=== PATIENT | male | born 1950 | race Caucasian/White ===

== ENCOUNTER 2022-02-24 20:16 | Inpatient (IN) | payer MEDICAID, MEDICARE ==
[~2022-02-24] VITALS: Ht 190.5 cm; Wt 104.3 kg
[2022-02-24 20:27] VITALS: BP_SYST 123
--- NOTE | 2022-02-24 20:31 | NUR ---
PATIENT BEING TREATED FOR BILATERAL LEG INFECTIONS AND HAD MECHANICAL FALL TODAY, C/O LEFT HIP PAIN WELL. TEMPERATURE AND SOB PRESENT WELL.
--- NOTE | 2022-02-24 20:43 | NUR ---
Pt to bed 7 w/ c/o right hip pain s/p mechanical fall. No shortening or abnormal rotation of leg. Pt denies LOC. Pt denies dizziness. Pt has multiple skin prolems to posterior legs. Respirations tachypneic. Pt on 6 L NC. Pt on residential monitor and pulse oximetry.
--- NOTE | 2022-02-24 20:59 | NUR ---
# 20 gauge angiocath placed to left forearm. Use of asceptic technique. Opsite placed over site. Blood return noted. Blood for lab drawn from site. Flushed with 10 cc of normal saline. No evidence of infiltration noted. Patient tolerated well.
[2022-02-24] MEDS ORDERED: KETAMINE HCL 500 MG/10 ML VIAL IVP ONE (21:00)
[2022-02-24] MEDS ORDERED: IBUPROFEN 800 MG TABLET PO ONE (21:00)
--- NOTE | 2022-02-24 21:13 | NUR ---
COVID19 SWAB LEFT WITH FRUIT OR NUT FARMWORKER
[2022-02-24 21:30] LABS: BASOPHILS % (AUTO) 0.5 % (0.0-2.0); EOSINOPHILS % (AUTO) 0.4 % (0.0-4.0); LYMPHOCYTES # (AUTO) 1.2 K/uL (1.0-5.5); LYMPHOCYTES % (AUTO) 11.6 % (20.5-51.5); MEAN CORPUSCULAR HEMOGLOBIN 32 pg (27-31); MEAN CORPUSCULAR HGB CONC 33 % (32-36); MEAN CORPUSCULAR VOLUME 95 fL (79.0-98.0); MONOCYTES # (AUTO) 0.9 K/uL (0.0-1.0); MONOCYTES % (AUTO) 8.7 % (1.7-9.3); NEUTROPHILS # (AUTO) 7.9 K/uL (1.8-7.7); NEUTROPHILS % (AUTO) 78.8 % (40.0-70.0); PLATELET COUNT (AUTO) 264 K/uL (130-430); RED BLOOD CELL COUNT(AUTO) 4.42 MIL/uL (4.2-6.2); RED CELL DISTRIBUTION WIDTH 14.4 % (9.0-15.0)
[2022-02-24] MEDS: PIPERACILLIN/TAZO 4.5GM/DEX-IS 100 ML IV SCH (21:30)
--- NOTE | 2022-02-24 21:30 | NUR ---
Consent signed for conscious sedation by patient at this time. explained procedure to patient.
--- NOTE | 2022-02-24 21:35 | NUR ---
conscious sedation begin
[2022-02-24 21:40] LABS: PROTHROMBIN TIME 10.3 SECS (9.5-12.5)
[2022-02-24 21:49] LABS: ANION GAP 3 (5-15); CALCIUM 8.5 mg/dL (8.4-11.0); CHLORIDE 101 mmol/L (98-107); CREATININE 1.15 mg/dL (0.55-1.30); GLUCOSE 112 mg/dL (70-99); POTASSIUM 4.5 mmol/L (3.5-5.1); SODIUM SERUM 136 mmol/L (136-145); UREA NITROGEN, BLOOD 17 mg/dL (8-21)
[2022-02-24 21:54] LABS: ALANINE AMINOTRANSFERASE 19 U/L (12-78); ALBUMIN 2.8 g/dL (3.4-4.8); ASPARTATE AMINOTRANSFERASE 20 U/L (10-37); C-REACTIVE PROTEIN QUANT 6.3 mg/dL (0-0.5); TOTAL BILIRUBIN 0.5 mg/dL (0.0-1.0)
--- NOTE | 2022-02-24 22:00 | NUR ---
conscious sedation end. Pt AOx4. GSC 15. Pt on simple mask at 8L.
--- NOTE | 2022-02-24 22:05 | NUR ---
All conscious sedation vitals and notes documented in Physical paperwork for I&D for perineal abscess with moderate sedation.
[2022-02-24 22:19] LABS: CKMB RELATIVE INDEX 0.6 (0.0-2.9); CREATINE KINASE MB 2.5 ng/mL (0-3.6)
--- NOTE | 2022-02-24 22:27 | NUR ---
Pt on Simple mask at 8 L/min at this time
[2022-02-24] MEDS ORDERED: ASPIRIN 325 MG TABLET (ECOTRIN) PO ONE (23:15)
[2022-02-24] MEDS ORDERED: ACETAMINOPHEN 325 MG TABLET PO PRN (23:30)
--- NOTE | 2022-02-24 23:30 | NUR ---
Admit bed requested Patient will be admitted to care of . Admitted to unit. Diagnosis SEPSIS/ABSCESS Inpatient (Yes or No) YES Observation (Yes or No) NO Orientation concerns or request close to nursing station (Yes or No) NO Covid Status PEND On vent or bipap NO Isolation requirements NO Needs a sitter NO From Home (Yes or if No enter name of facility) HOME Requires Dialysis (Yes or No) NO Med Rec Completed (Yes of No) NO
[2022-02-24] MEDS ORDERED: VANCOMYCIN HCL 1,500 MG in NS 250 ML IV ONE (23:45)
[2022-02-24] MEDS ORDERED: PIPERACILLIN/TAZOBACTAM 4.5 GM/VIAL (ZOSYN) IV ONE (23:49)
[2022-02-24] MEDS ORDERED: iohexoL 350 mgI/mL, 100 ML INFUS..BTL IV ONE (23:57)
[2022-02-25] MEDS: PIPERACILLIN/TAZO 4.5GM/DEX-IS 100 ML IV SCH
--- NOTE | 2022-02-25 00:07 | NUR ---
Pt refused CT at this time
[2022-02-25] MEDS ORDERED: PIPERACILLIN/TAZOBACTAM 4.5 GM/VIAL (ZOSYN) IV ONE (00:36)
--- NOTE | 2022-02-25 00:58 | NUR ---
Admission Note Received patient from ER with diagnosis of sepsis and abscess. Initial Plan of Care discussed-patient verbalized understanding. Oriented to room, call light, pain management and safety.
[2022-02-25] MEDS ORDERED: VANCOMYCIN HCL 500 MG/VIAL IV ONE (01:06)
[2022-02-25] MEDS ORDERED: VANCOMYCIN HCL 1000 MG/VIAL IV ONE (01:06)
[2022-02-25] MEDS ORDERED: PIPERACILLIN/TAZOBACTAM 3.375 GM/VIAL (ZOSYN) IV ONE (01:06)
[2022-02-25 01:13] VITALS: BP_SYST 131
[2022-02-25] MEDS ORDERED: PIPERACILLIN/TAZO 3.375 GM in NS 50 ML IV SCH (06:00)
--- NOTE | 2022-02-25 06:11 | NUR ---
CLOSING NOTE PATIENT IN BED, SLEEPING AT THIS TIME. NO S/S OF ACUTE DISTRESS. BREATHING EVEN AND UNLABORED. HOB RAISED, NASAL CANULA ATTACHED PROPERLY, ON 2L OF OXYGEN. IV SITE PATENT, NO SIGNS OF INFILTRATION OR INFECTION NOTED. ALL NEEDS MET THROUGHOUT SHIFT. FALL AND SAFETY PRECAUTIONS MAINTAINED THROUGHOUT SHIFT. WILL CONTINUE TO MONITOR UNTIL PATIENT CARE IS ENDORSED TO ONCOMING DAYSHIFT NURSE.
[2022-02-25] MEDS ORDERED: ENOXAPARIN SODIUM 40 MG/0.4 ML SYRINGE SUBCUT ONE (09:00)
[2022-02-25 09:34] VITALS: BP_SYST 140
[2022-02-25] MEDS: HYDROcodone/ACETAMIN 10-325 MG TAB PO PRN ×2 (10:36→16:05)
[2022-02-25] MEDS: ENOXAPARIN SODIUM 40 MG/0.4 ML SYRINGE SUBCUT SCH (10:36)
[2022-02-25] MEDS: VANCOMYCIN HCL 1,250 MG in NS 250 ML IV SCH (12:52)
[2022-02-25] MEDS: PIPERACILLIN/TAZO 3.375 GM in NS 50 ML IV SCH ×3 (12:53→23:05)
[2022-02-25 13:45] VITALS: BP_SYST 118
--- NOTE | 2022-02-25 16:23 | NUR ---
CONSULTATION: REASON FOR CONSULT: PERINEAL ABSCESS CONSULTING PHYSICIAN: JOSE ORDERED BY: INEZ SPOKE WITH RUTH FROM EXCHANGE [phone]
--- NOTE | 2022-02-25 19:15 | NUR ---
OPENING NOTE RECEIVED REPORT FROM DAYSHIFT NURSE. PATIENT RECEIVED LYING IN BED, AWAKE, NO S/S OF ACUTE DISTRESS, DENIES PAIN AT THIS TIME. BREATHING IS EVEN AND UNLABORED. HOB RAISED. NASAL CANULA ATTACHED PROPERLY, ON 2L OF OXYGEN. IV SITE PATENT, NO SIGS OF INFILTRATION OR INFECTION NOTED. CALL LIGHT WITH PATIENT. BED IS LOCKED AND AT LOWEST POSITION. WILL CONTINUE TO MONITOR.
--- NOTE | 2022-02-25 19:36 | NUR ---
PATIENT CARE LATE ENTRY DUE TO PT CARE 0900- ASSUMED PATIENT CARE. WOUND ON THE LEFT BUTTOCKS PATIENT STATING FROM AN INFECTED HAIR FOLICLE, DRAINING MINIMAL AMOUNT OF SEROSANGUINEOUS OUTPUT, NO ODOR. PLAN OF CARE DISCUSSED WITH PATIENT. PT VERBALIZED UNDERSTANDING.
[2022-02-25 20:00] VITALS: BP_SYST 132
[2022-02-25] MEDS: HYDROmorphone 1 MG/ML INJ. CARTRIDGE IVP PRN (22:23)
[2022-02-26] VITALS: BP_SYST 118
[2022-02-26] MEDS: VANCOMYCIN HCL 1,250 MG in NS 250 ML IV SCH ×2 (00:04→11:35)
[2022-02-26] MEDS: PIPERACILLIN/TAZO 3.375 GM in NS 50 ML IV SCH (05:23)
[2022-02-26 06:09] LABS: BASOPHILS # (AUTO) 0.1 K/uL (0.0-0.2); BASOPHILS % (AUTO) 0.8 % (0.0-2.0); EOSINOPHILS # (AUTO) 0.1 K/uL (0.0-0.4); EOSINOPHILS % (AUTO) 0.9 % (0.0-4.0); HEMATOCRIT 39.2 % (36-54); HEMOGLOBIN 13.1 g/dL (14.0-18.0); LYMPHOCYTES # (AUTO) 1.2 K/uL (1.0-5.5); MEAN CORPUSCULAR HEMOGLOBIN 32 pg (27-31); MEAN CORPUSCULAR HGB CONC 34 % (32-36); MEAN CORPUSCULAR VOLUME 95 fL (79.0-98.0); MONOCYTES # (AUTO) 0.9 K/uL (0.0-1.0); MONOCYTES % (AUTO) 8.6 % (1.7-9.3); NEUTROPHILS # (AUTO) 8.2 K/uL (1.8-7.7); NEUTROPHILS % (AUTO) 78.7 % (40.0-70.0); PLATELET COUNT (AUTO) 269 K/uL (130-430); RED BLOOD CELL COUNT(AUTO) 4.12 MIL/uL (4.2-6.2); RED CELL DISTRIBUTION WIDTH 14.2 % (9.0-15.0); WHITE BLOOD COUNT (AUTO) 10.5 K/uL (4.8-10.8)
--- NOTE | 2022-02-26 06:34 | NUR ---
CLOSING NOTE PATIENT IN BED, RESTING. NO S/S OF ACUTE DISTRESS NOTED. BREATHING IS EVEN AND UNLABORED. HOB RAISED, NASAL CANULA ATTACHED PROPERLY, ON 2L OF OXYGEN. IV SITE PATENT, NO SIGNS OF INFILTRATION OR INFECTION NOTED. ALL NEEDS MET THROUGHOUT SHIFT. FALL AND SAFETY PRECAUTIONS MAINTAINED THROUGHOUT SHIFT. WILL CONTINUE TO MONITOR UNTIL PATIENT CARE IS ENDORSED TO ONCOMING DAYSHIFT NURSE.
[2022-02-26 07:06] LABS: ANION GAP 5 (5-15); CALCIUM 8.6 mg/dL (8.4-11.0); CHLORIDE 98 mmol/L (98-107); GLUCOSE 112 mg/dL (70-99); POTASSIUM 4.6 mmol/L (3.5-5.1); SODIUM SERUM 133 mmol/L (136-145); UREA NITROGEN, BLOOD 14 mg/dL (8-21)
--- NOTE | 2022-02-26 07:45 | NUR ---
Received report from night patrol inspector RN, and assumed patient care.
[2022-02-26 08:00] VITALS: BP_SYST 126
[2022-02-26] MEDS: ENOXAPARIN SODIUM 40 MG/0.4 ML SYRINGE SUBCUT SCH (08:20)
--- NOTE | 2022-02-26 09:15 | NUR ---
Patient had an accident of urinating on the patient's bed, patient was able to get out of bed and walk over to toilet with supervision, and was able to change patient's linen bedsheets and patient was all clean afterwards. No other complications noted during the process, and was concern of abscess on the buttock. Inspected the area, and it was clean, and dry, and open to air with no coverage. Patient understands teaching and will reinforce if needed throughout the shift.
--- NOTE | 2022-02-26 10:05 | NUR ---
Dr. Zi Palmer called provided nursing updates, no other orders noted at the moment. Will reinforce if needed throughout the shift.
--- NOTE | 2022-02-26 10:49 | NUR ---
Dietitian Recommendations * Consider changing diet to 2 gm Na d/t H/O HTN * Offer snakc between meals if pt is still hungry Please refer to Nutrition Assessment for details. Addendum: 02/26/22 at [address] Amended: Links added.
[2022-02-26 12:00] VITALS: BP_SYST 128
[2022-02-26] MEDS: metroNIDAZOLE 500 MG TABLET PO SCH ×2 (13:38→21:04)
--- NOTE | 2022-02-26 14:29 | NUR ---
DISCHARGE PLANNING Faxed Order stable to transfer to [facility] [employer] to [facility]. Called & spoke with [facility] sales forecast analyst ph [phone], & states received order. States that they have a stability transfer list & pt placed on it. No [facility] today will be assigned one tomorrow & will f/u with transfer tomorrow. Addendum: 02/26/22 at 1440 by Joyce Ballard RN Discussed transfer to [facility] with pt and agreeable, prefers [facility].
[2022-02-26 16:00] VITALS: BP_SYST 130
[2022-02-26 19:50] VITALS: BP_SYST 147
--- NOTE | 2022-02-26 19:50 | NUR ---
PM ASSESSMENT; -Pt is a/ox4. Pt is resting in bed. Pt denies any chest pain,pain,sob,or any acute distress. IV site patent, no s/s any infiltration noted. Rt butt warm and wound no drainage noted. VS 97.9, 20, 147/79, 67,r6tfd=48% r/a. Discussed poc,all safety measures, and not to get out bed without using a call light for assistance, pt verbalized understanding. Instructed and educated pt regarding safety measures and pt is able to use call light with good return demonstration. Fall precaution in place. Bed alarmed. call light w/in reach, side rails x2. Cont to monitor pt.
[2022-02-26] MEDS ORDERED: FLUTICASONE PROPIONATE 50 mCg/SPRAY 16 GM NS SCH (21:00)
[2022-02-26] MEDS: CEFEPIME 2 GM in D5W 100 ML IV SCH (21:04)
[2022-02-27 00:05] VITALS: BP_SYST 136
[2022-02-27] MEDS: VANCOMYCIN HCL 1,250 MG in NS 250 ML IV SCH ×2 (00:05→12:00)
--- NOTE | 2022-02-27 00:05 | NUR ---
ROUNDS; -Pt is resting in bed. Pt denies any chest pain,pain,sob,or any acute distress. IV site patent, no s/s any infiltration noted. Infusing Vanco IVPB. sinus bradycardia noted, VS 97.5, 18, 62, 136/94,58,[id number]=94%. bed alarmed, call light w/in reach, side rails x2. Cont to monitor pt.
--- NOTE | 2022-02-27 02:19 | NUR ---
ROUNDS; -Pt is asleep. NO s/s any chest pain,pain,sob,or any acute distress noted. bed alarmed, call light w/in reach, side rails x2. Cont to monitor pt.
--- NOTE | 2022-02-27 04:05 | NUR ---
ROUNDS; -Pt is asleep. NO s/s any chest pain,pain,sob,or any acute distress noted. bed alarmed, call light w/in reach, side rails x2. Cont to monitor pt.
[2022-02-27] MEDS: metroNIDAZOLE 500 MG TABLET PO SCH ×2 (05:53→13:33)
--- NOTE | 2022-02-27 05:56 | NUR ---
ROUNDS; -Pt is asleep,awakes when asked to give Flaygl po. Pt denies any chest pain,pain,sob,or any acute distress. Pt refused to change new bed sheet and linen. Pt stated,"I am okay not to change new one." bed alarmed, call light w/in reach, side rails x2. Cont to monitor pt.
--- NOTE | 2022-02-27 06:31 | NUR ---
CLOSING NOTES; Pt is resting in bed. Pt denies any chest pain,pain,sob,or any acute distress. IV site patent, no s/s any infiltration noted. Fall precaution in place. Bed alarmed. call light w/in reach, side rails x2. Will endorse to next nurse to cont care.
--- NOTE | 2022-02-27 08:00 | NUR ---
Initial assessment: Patient received in bed awake, alert, and oriented x4. Patient inquiring if his abscess was draining. No drainage noted. Patient is stable, will return around 10 AM to perform wound care.
[2022-02-27] MEDS: HYDROmorphone 1 MG/ML INJ. CARTRIDGE IVP PRN (09:46)
--- NOTE | 2022-02-27 09:57 | NUR ---
DISCHARGE PLANNING Faxed stable to transfer order & updated pt info to [facility], fax [phone]. Addendum: 02/27/22 at 1344 by Joyce Ballard RN Received call from Jodi perez at [facility], ph [phone], answered questions, is reviewing case for possible transfer to [facility].
--- NOTE | 2022-02-27 10:00 | NUR ---
WOUND EVALUATION: Late note for 02/27/2022 at 1000 secondary to patient care. Wound Consult received from Dr. Loza. Thank you, Dr. Loza, for the consult. Patient received in a Justin Bed with an Isoflex MIKAELA mattress, awake, alert, and oriented. Patient is able to turn in bed independently. John Score is an 18. Past Medical History: Hypertension. Patient admitted for Perianal abscess, had I&D in the Emergency Room and was admitted to the hospital. Recent Labs: WBC 10.5, RBC 4.12, hemoglobin 13.1, hematocrit 39.2, sodium 133, glucose 112, albumin 2.8, Troponin I High Sensitivity: 119, 135. Microbiology: Blood culture results x2 in progress. Intrinsic factors that delay wound healing: Hypoalbuminemia, Hyperglycemia. Extrinsic factors that delay wound healing: Decreased mobility, moisture from bowel movements. Wound Assessment: 1. Right Posterior Proximal Thigh/Deann-Anal area Abscess, present on admission, status post I&D in the emergency room. Wound bed below incision was not visible. Tissue surrounding the incision was 100% pink, indurated. No odor, no drainage. Deann-wound intact, white. Entire site measures 2.3 cm x 4.0 cm x 2.7 cm. Incision site measures 0.4 cm x 0.5 cm x 2.7 cm. Recommend: Cleanse wound with normal saline. Apply moisture barrier cream to deann-wound. Apply hydrogel to surrounding wound bed and tissue inside incision. Pack wound with 1/4 inch iodoform packing strip. Cover site with 4 x 4 foam dressing. Perform wound care daily, and as needed for dressing soiling or dislodgement. Also recommend: Encourage patient to reposition side to side only every 2 hours with pillow support and off-load pressure areas with pillows for pressure re-distribution. Offload, elevate and float bilateral heels with pillows. Perform skin care and monitor skin integrity Q shift. Maintain patient on a low air-loss mattress.
[2022-02-27 12:00] VITALS: BP_SYST 118
[2022-02-27] MEDS: ENOXAPARIN SODIUM 40 MG/0.4 ML SYRINGE SUBCUT SCH (13:33)
[2022-02-27] MEDS: CEFEPIME 2 GM in D5W 100 ML IV SCH (13:33)
[2022-02-27 18:21] VITALS: BP_SYST 124
[2022-02-27 18:23] VITALS: BP_SYST 123
[2022-02-27 21:00] VITALS: BP_SYST 126
--- NOTE | 2022-02-27 23:07 | NUR ---
PT WAS ADMITTED FOR SEPSIS AND FEVER ON 02/24/2022, HE IS ALERT AND ORIENTED X4, HE IS ONBEDREST , CONTINENET, HE IS REGULAR DIET , WAS TRANSFERRED TO [facility] , REPORT WAS GIVEN TOP TC MACE,TIP [phone], ON 02/27/2022 AT 2100
== END 2022-02-27 22:20 | disposition short-term general hospital (02) | DRG 394 ==
LOC: SED 20:16 → STU 23:23 → SMU 02-26 13:59
PROVIDERS: ADMIT Family Medicine; ATTEND Family Medicine
PROC: 0J9B0ZZ Drainage of Perineum Subcutaneous Tissue and Fascia, Open Approach (ICD-10-PCS; principal; 2022-02-24)
DX: K61.2 Anorectal abscess (principal); E44.1 Mild protein-calorie malnutrition; I10 Essential (primary) hypertension; J45.909 Unspecified asthma, uncomplicated; E11.9 Type 2 diabetes mellitus without complications; F03.90 Unspecified dementia, unspecified severity, without behavioral disturbance, psychotic disturbance, mood disturbance, and anxiety; K21.9 Gastro-esophageal reflux disease without esophagitis; Z20.822 Contact with and (suspected) exposure to COVID-19; Z86.73 Personal history of transient ischemic attack (TIA), and cerebral infarction without residual deficits; I25.2 Old myocardial infarction; Z95.0 Presence of cardiac pacemaker
CPT/HCPCS: 36415; 71045; 80048; 80053; 82550; 82553; 83605; 83880; 84484; 85025; 85610-TC; 85730-TC; 86140; 87040; 93005; 99285; G0378; J0692; J1170; J1650; J2543; J3370; J7050; J7060; Q9967